=== PATIENT | female | born 1975 | race Caucasian/White ===

== ENCOUNTER 2019-07-18 21:38 | Emergency (ER) | payer MEDICAID, SELFPAY ==
[2019-07-18] VITALS (12 sets, daily range): BP systolic 123–132; BP diastolic 81–87; PULSE 63–82; RESP 19–34; TEMP 37.1; O2SAT 93–99
--- NOTE | 2019-07-18 21:45 | ED.GENADUL_ITS ---
Discharge Plan Disposition Patient Disposition: HOME Condition: Good Discharge Details Chief Complaint: Chest Pain Clinical Impression: Chest pain Primary Care Provider: Leatha Ellis ED Provider: Wai Campuzano Meds and New Rx's Prescriptions: Continued multivitamin [Daily Vitamin] 1 EACH tablet 1 ea PO DAILY RF: 0 polyethylene glycol 3350 [Miralax] 17 GM powder in packet 17 gm PO PRN RF: 0 citalopram 10 MG/5 ML solution 20 mg PO HS RF: 0 Colace 50 MG capsule 100 mg PO BID RF: 0 levalbuterol HCl [Xopenex] 1.25 MG/3 ML solution for nebulization 1.25 mg Inhalation Q6H PRN RF: 0 cetirizine 1 MG/1 ML solution 10 mg PO DAILY RF: 0 DEPO-PROVERA 150 MG/1 ML DISP.SYRIN 150 mg IM q 12 weeks RF: 0 mometasone [Nasonex] 17 GM spray,non-aerosol 2 spry NS DAILY RF: 0 levalbuterol tartrate [Xopenex HFA] 15 GM HFA aerosol inhaler 1 inh Inhalation Q4H PRN RF: 0 lorazepam 0.5 mg Tablet 0.5 mg PO DAILY PRNRF: 0 pantoprazole 40 mg Tablet,Delayed Release (Dr/Ec) 40 mg PO DAILY RF: 0 Flovent HFA 110 mcg/actuation Hfa Aerosol Inhaler 1 puff INHALATION Q12H RF: 0 nabumetone 500 mg Tablet 500 mg PO BID PRNRF: 0 Discontinued omeprazole 10 MG capsule,delayed release(DR/EC) 20 mg PO DAILY RF: 0 ibuprofen [Advil] 100 MG tablet,chewable 800 mg PO 2 q 6 hrs prn RF: 0 Discharge Instructions Instructions: Chest Pain (ED) Additional Instructions: Your work-up tonight including laboratory studies, EKG, imaging are all reassuring. You should follow-up with your primary care this week. Outpatient stress testing to rule out a cardiac problem is recommended, preferably within 7 2 hours. Return to ED if you develop new or worsening chest pain, shortness of breath, fever, other concerns or problems. Referrals: Leatha Ellis [Primary Care Provider] - Medical Decision Making <Jered Alejo MD - Last Filed: 07/18/19 23:42> Pleasant 44-year-old female smoker presents with the abrupt onset of left-sided chest discomfort while at work this evening. She was transported by EMS, given 325 mg of aspirin, and had taken 1000 mg of Tylenol. She arrives afebrile with a pulse of 72, blood pressure 123/81. Well-appearing and in no significant distress. She does have mild reproducible left chest wall pain. Differential diagnosis would include pneumothorax, pulmonary embolism, acute coronary syndrome, costochondritis. IV access established, patient given ketorolac, referred for laboratory testing, EKG, chest x-ray. EKG unremarkable. Chest x-ray with clear lungs, no evidence of pneumothorax and no consolidation or mass. D-dimer elevated and patient referred for CT scan of the chest that has no evidence of acute findings, specifically no PE. She will be observed for repeat troponin. Case to be signed out to Dr. Campuzano pending repeat troponin. Please see his note regarding final impression and disposition. ECG Data Attestation: I personally reviewed and interpreted this ECG (s) as follows: Interpretation: Normal sinus rhythm with a rate of 75, the QRS is narrow, unremarkable intervals, no ST segment elevation. <Wai Campuzano MD - Last Filed: 07/19/19 01:45> Patient had presented with chest pain. Initially evaluated by Dr. Alejo. Signed out to me pending second troponin and EKG. She has done well here with no complaints. Repeat EKG remains normal. Repeat troponin remains negative. HEART score makes her low risk and she will be discharged home to follow up with PCP. Return to ED for new/worse pain, shortness of breath, fever, other concerns. Lab Data Lab results reviewed: Yes I reviewed the patient's lab results. ECG Data Attestation: I personally reviewed and interpreted this ECG (s) as follows: Prior ECG tracings: available for review Interpretation: EKG sinus rhythm at a rate of 63. Normal axis and intervals. Normal ST segments. HPI <Jered Alejo MD - Last Filed: 07/18/19 23:42> General Mode of arrival: EMS . Date/Time Provider Initiated Documentation: 07/18/19 21:47 . Limitations to Documentation: no limitations . Information obtained by: patient and EMS . History of Present Illness 44 year old F presents to the emergency department with the chief complaint of Left- sided chest pain abruptly at work, described as moderate, Quality is described as dull and constant, and is localized to the chest and left. Patient started experiencing this hour(s) and it has been constant. No relieving factors improve symptom(s), No exacerbating factors reported . Patient notes no other symptoms.; denies syncope. Patient did receive the following treatments prior to arrival, other (Aspirin 325 mg, 1000 mg Tylenol) Related Data Home Medications Medication Instructions Recorded Confirmed Colace 100 mg PO BID tab-cap 08/10/13 07/18/19 Depo-Provera 150 mg IM q 12 weeks 08/10/13 07/18/19 cetirizine 10 mg PO DAILY ml 08/10/13 07/18/19 citalopram 20 mg PO HS ml 08/10/13 07/18/19 levalbuterol HCl [Xopenex] 1.25 mg INHALATION Q6H PRN 08/10/13 07/18/19 levalbuterol tartrate [Xopenex HFA] 1 inh INHALATION Q4H PRN inhaler 08/10/13 07/18/19 mometasone [Nasonex] 2 spry NS DAILY spray 08/10/13 07/18/19 multivitamin [Daily Vitamin] 1 ea PO DAILY 08/10/13 07/18/19 polyethylene glycol 3350 [Miralax] 17 gm PO PRN 08/10/13 07/18/19 Flovent HFA 1 puff INHALATION Q12H 07/18/19 07/18/19 lorazepam 0.5 mg PO DAILY PRN 07/18/19 07/18/19 nabumetone 500 mg PO BID PRN 07/18/19 07/18/19 pantoprazole 40 mg PO DAILY 07/18/19 07/18/19 Allergies Allergy/AdvReac Type Severity Reaction Status Date / Time oxycodone [Oxycodone] Allergy Intermediate VOMITS Unverified 08/18/13 15:16 Review of Systems <Jered Alejo MD - Last Filed: 07/18/19 23:42> Review of Systems Narrative: No leg pain or swelling. No recent illness. She has otherwise recently been well. Admits to increased stress in her life. Continues to smoke. 8 systems reviewed and otherwise negative PFSH <Jered Alejo MD - Last Filed: 07/18/19 23:42> Social History Smoking/Tobacco Use Status: Current every day Alcohol Intake: never Substance use type: does not use Do you feel safe at home: Yes Do you feel safe in your relationship?: Yes Exam <Jered Alejo MD - Last Filed: 07/18/19 23:42> Narrative Exam Narrative: GEN: awake, alert, oriented 3. Pleasant, well groomed, interactive. HEAD: Normocephalic, atraumatic ENT: Mucous membranes moist, oropharynx unremarkable, External ear exam unremarkable EYES: PERRL, EOMI NECK: Full ROM, no ARIELLA, no menigismus CHEST/RESP: Minimal left-sided chest wall tenderness to palpation, clear to auscultation bilateral, no wheeze/rhonchi/rales CARDIOVASCULAR: RRR, no murmur, rub yasmine. 2+ Rad pulse bilateral ABDOMEN: Soft, nontender, no mass. +Bowel sounds EXT: Full ROM, no edema, no rash Neuro: Grossly normal neurologic exam, conversant, interactive. Psych: Speech fluent, thoughts congruent, affect normal Sign Out <Jered Alejo MD - Last Filed: 07/18/19 23:42> Sign Out Data: Sign Out Comment: followup repeat troponin, re-evaluation Last updated by Jered Alejo MD at 07/18/19 23:44
--- NOTE | 2019-07-18 21:50 | DI.RAD_ITS ---
EXAM: XR CHEST 2V PA LATERAL CLINICAL HISTORY: CP, hx reactive airway dis. TECHNIQUE: 2D digital imaging was performed. COMPARISON: No exams were available for comparison FINDINGS: LUNGS: Clear. No pleural abnormality seen. HEART: Normal. MEDIASTINUM: Normal. OTHER FINDINGS:Normal. IMPRESSION: No acute pulmonary findings.
--- NOTE | 2019-07-18 22:13 | NUR.NOTE ---
Pt reports sudden onset constant, sharp left chest pain radiating down left arm since 2099. was at work at the time. Reports associated SOB. tried using inhaler with no relief. SR on monitor, LSCTA. Reports hx of anxiety, does not feel similar to anxiety attack in the past. #18 RAC, labs drawn.
[2019-07-18 22:18] LABS: Abs Immature Grans 0.01 k/cumm (0.0-0.09); Absolute Basophil Count 0.02 k/cumm (0.0-0.2); Absolute Eosinophil Count 0.07 k/cumm (0.0-0.7); Absolute Monocyte Count 0.46 k/cumm (0.11-0.7); Absolute Neutrophil Count 3.71 k/cumm (1.2-6.7); Basophils % 0.3; Eosinophils % 1.1; HCT 34.5 % (36.0-46.0); HGB 11.9 g/dL (12.0-15.5); Immature Grans % 0.2; Mean Corp. HGB Concentration 34.5 g/dL (32.0-36.0); Mean Corpuscular Hemoglobin 29.8 pg (27.0-33.0); Mean Corpuscular Volume 86.3 fL (80-95); Mean Platelet Volume 8.5 fL (8.0-11.0); Neutrophils % 56.4; Platelet Count 357 x1000/uL (130-400); RBC Distribution Width 12.8 % (11.7-14.6); White Blood Cell Count 6.57 k/cumm (4.4-10.8)
[2019-07-18] MEDS: Ketorolac 15 MG/ML VIAL IVP (22:24)
--- NOTE | 2019-07-18 22:28 | DI.VRAD_ITS ---
PROCEDURE INFORMATION: Exam: XR Chest, 2 Views Exam date and time: 07/18/2019 9:52 PM Clinical history: 44 years old, female; Left-sided chest pain; Patient HX: Left sided chest pain for 2 hours TECHNIQUE: Imaging protocol: XR of the chest Views: 2 views. COMPARISON: No relevant prior studies available. FINDINGS: Lungs: Clear lungs. Pleural space: No pneumothorax. No sizable pleural effusion. Heart/Mediastinum: No cardiomegaly. Bones/joints: Unremarkable. IMPRESSION: Clear lungs. Dictated and Authenticated by: Moe Barrera MD. Ordering:MARGO Lawton MD
[2019-07-18 22:29] LABS: ALT 14 U/L (14-59); AST 12 U/L (15-37); Albumin 3.6 g/dL (3.4-5.0); Alkaline Phosphatase 70 U/L (46-116); Anion Gap 12.4 mmol/L (3-11); BUN 9 mg/dL (7-18); Bilirubin, Total 0.2 mg/dL (0.2-1.0); CO2 22.6 mmol/L (21.0-32.0); Calcium 8.7 mg/dL (8.5-10.1); Chloride 107 mmol/L (98-107); Estimated GFR 53.47 (mL/min/1.73m2); Glucose 87 mg/dL (70-100); Potassium 3.4 mmol/L (3.5-5.1); Sodium 142 mmol/L (136-145); Total Protein 6.9 g/dL (6.4-8.2); Troponin I < 0.05 ng/mL (0.00-0.06)
[2019-07-18 22:50] LABS: D-Dimer 519 ng/mlFEU (<500)
--- NOTE | 2019-07-18 22:52 | DI.CT_ITS ---
EXAM: CT CHEST PE CTA CLINICAL HISTORY: L chest pain, elevated DDimer TECHNIQUE: Imaging Protocol: Axial computed tomography images with coronal and sagittal reformatted images were created and reviewed CONTRAST MATERIAL: Intravenous: Omnipaque 350 Contrast volume:structured data in ml Contrast route:I V - Oral: yes / COMPARISON: No exams were available for comparison FINDINGS: Tracheobronchial tree: Patent where visualized. Mediastinum and Nery: No dominant adenopathy or fluid collection. Pulmonary parenchyma: No consolidation or dominant measurable mass.. No pneumothorax. Pleura: No effusion or pneumothorax. Heart/Aorta: Thoracic aorta non-dilated. The heart is not dilated. No coronary artery calcifications are seen. Pulmonary artreries: No emboli. Normal caliber. Upper abdomen: Unremarkable. Bones: Unremarkable. IMPRESSION: Normal CT of the thorax. DATA REPOSITORY: All CT scans at this facility are submitted to the National Radiology Data Registry (NRDR) Dose Index Registry (DIR) with the [employer] (ACR). RADIATION OPTIMIZATION: All CT scans at this facility use at least one of these dose optimization te chniques: automated exposure control; mA and/or kV adjustment per patient size (includes targeted exa ms where dose is matched to clinical indication); or iterative reconstruction.
[2019-07-18] MEDS: Normal Saline 500 ML IV (22:59)
[2019-07-18] MEDS: Omnipaque 350 MG/ML 100 ML BTL IJ (23:11)
--- NOTE | 2019-07-18 23:41 | DI.VRAD_ITS ---
PROCEDURE INFORMATION: Exam: CT Angiography Chest With Contrast Exam date and time: 07/18/2019 11:05 PM Clinical history: 44 years old, female; Pain and abnormal findings; Abnormal diagnostic tests; Elevated d-dimer; Left-sided chest pain; Patient HX: L chest pain, elevated d dimer TECHNIQUE: Imaging protocol: Computed tomographic angiography of the chest with intravenous contrast. 3D rendering: MIP reconstructed images were created and reviewed. COMPARISON: CR XR CHEST 2V PA LATERAL 07/18/2019 10:13 PM FINDINGS: Pulmonary arteries: There is no evidence for PE. Aorta: Unremarkable. No aortic aneurysm. No aortic dissection. Lungs: Minimal dependent atelectasis Pulmonary granuloma noted. Pleural space: Unremarkable. No pneumothorax. No pleural effusion. Heart: Unremarkable. No cardiomegaly. No pericardial effusion. Lymph nodes: Unremarkable. No enlarged lymph nodes. Bones/joints: Unremarkable. No acute fracture. Soft tissues: Unremarkable. IMPRESSION: No acute findings Dictated and Authenticated by: Brannon Burden MD. Ordering:MARGO Lawton MD
[2019-07-19 00:27] VITALS: BP 142/89; PULSE 73
[2019-07-19 01:07] LABS: Troponin I < 0.05 ng/mL (0.00-0.06)
[2019-07-19 01:46] VITALS: BP 124/84; PULSE 73; RESP 16; TEMP 37.5; O2SAT 99
--- NOTE | 2019-07-19 01:47 | NUR.NOTE ---
IV removed. Discharge instructions reviewed with verbal understanding. aware to f/u with pcp as needed. ambulated to exit with steady gait.
== END 2019-07-19 01:52 | disposition home or self-care (01) ==
PROVIDERS: Emergency Medicine; Emergency Provider Emergency Medicine; PCP Registered Nurse
DX: R07.9 Chest pain, unspecified (principal)
CPT/HCPCS: 36416; 71275; 80053; 93005; 96361; 96374; 99285; 71046; 84484; 85025; 85379; 93010; 99284; J1885; J3490

== ENCOUNTER 2021-04-21 19:20 | Emergency (ER) | payer MEDICAID, SELFPAY ==
[2021-04-21] VITALS (27 sets, daily range): BP systolic 113–157; BP diastolic 65–97; PULSE 69–83; RESP 7–37; TEMP 36.6; O2SAT 97–100
--- NOTE | 2021-04-21 20:15 | RT.EKG_ITS ---
APPROVED REPORT Exam: Resting ECG Reason for Exam: chest pain Patient Location: E HR:69 bpm ECG Measurements Heart Rate 69 AXIS NJ 156 P 61 QRSd 71 QRS 41 QT 444 T 36 QTc 474 Conclusion Sinus rhythm...normal P axis, V-rate 60- 99 Normal Electrocardiogram
--- NOTE | 2021-04-21 20:15 | DI.RAD_ITS ---
Exam(s) XR CHEST 2V PA LATERAL EXAM: XR CHEST 2V PA LATERAL CLINICAL HISTORY: chest pain. TECHNIQUE: 2D digital imaging was performed. COMPARISON: CR XR CHEST 2V PA LATERAL from 07/18/2019 FINDINGS: Heart size is normal. The mediastinum is not widened. Lungs are clear. No infiltrates nor pleural effusions. Chest leads in place IMPRESSION: No acute pulmonary findings. DATA REPOSITORY: RADIATION DOSE DELIVERED:
[2021-04-21 20:43] LABS: Abs Immature Grans 0.03 10^3/uL (0.0-0.06); Absolute Basophil Count 0.02 10^3/uL (0.0-0.2); Absolute Eosinophil Count 0.05 10^3/uL (0.0-0.7); Absolute Lymphocyte Count 2.01 10^3/uL (1.2-3.4); Absolute Monocyte Count 0.37 10^3/uL (0.1-0.8); Absolute Neutrophil Count 4.02 10^3/uL (1.2-6.7); Basophils % 0.3; Eosinophils % 0.8; HCT 36.5 % (36.0-46.0); HGB 12.3 g/dL (11.2-15.7); Immature Grans % 0.5; Lymphocytes % 30.9; MCH 29.1 pg (27.0-33.0); MCHC 33.7 % (32.0-36.0); MCV 86.5 fL (80-95); MPV 8.5 fL (8.0-11.0); Monocytes % 5.7; Neutrophils % 61.8; Nucleated RBC 0 %; Platelet Count 304 10^3/uL (130-400); RBC 4.22 10^6/uL (3.93-5.22); RDW 12.6 % (11.7-14.6); RDW-SD 39.6 fL
[2021-04-21] MEDS: LORazepam 1 MG TAB PO (20:45)
[2021-04-21] MEDS: Normal Saline 1,000 ML 1000 ML IV (20:46)
[2021-04-21 21:00] LABS: ALT 15 U/L (14-59); AST 11 U/L (15-37); Albumin 3.5 g/dL (3.4-5.0); Alkaline Phosphatase 66 U/L (46-116); Anion Gap 10.8 mmol/L (3-11); BUN 11 mg/dL (7-18); Bilirubin, Total 0.1 mg/dL (0.2-1.0); CO2 25.2 mmol/L (21.0-32.0); Calcium 9.1 mg/dL (8.5-10.1); Chloride 106 mmol/L (98-107); Estimated GFR 59.43 (mL/min/1.73m2); Glucose 87 mg/dL (74-106); Magnesium 2.2 mg/dL (1.8-2.4); Potassium 3.4 mmol/L (3.5-5.1); Sodium 142 mmol/L (136-145); Total Protein 6.9 g/dL (6.4-8.2)
[2021-04-21 21:02] LABS: Troponin I < 0.05 ng/mL (<0.06)
--- NOTE | 2021-04-21 22:10 | DI.VRAD_ITS ---
PROCEDURE INFORMATION: Exam: XR Chest Exam date and time: 04/21/2021 8:20 PM Age: 45 years old Clinical indication: Other: Chest pain and dizziness TECHNIQUE: Imaging protocol: XR of the chest. Views: 2 views. COMPARISON: CR XR CHEST 2V PA LATERAL 07/18/2019 10:13 PM FINDINGS: Tubes, catheters and devices: Monitoring wires are noted. Lungs: Unremarkable. No consolidation. Pleural spaces: Unremarkable. No pleural effusion. No pneumothorax. Heart/Mediastinum: Unremarkable. No cardiomegaly. Bones/joints: Unremarkable. IMPRESSION: No acute cardiopulmonary abnormality. Dictated and Authenticated by: Pineda Moreno MD. Ordering:YOVANA Wilcox MD
[2021-04-21 22:45] LABS: Troponin I < 0.05 ng/mL (<0.06)
--- NOTE | 2021-04-21 23:01 | ED.GENADUL_ITS ---
Discharge Plan Disposition Patient Disposition: HOME Condition: Good Discharge Details Clinical Impression: Pre-syncope, Chest pain Primary Care Provider: Leatha Ellis ED Provider: Jeri Alvarez Home Meds and New Rx's Prescriptions: Continued multivitamin [Daily Vitamin] 1 EACH tablet 1 ea PO DAILY RF: 0 polyethylene glycol 3350 [Miralax] 17 GM powder in packet 17 gm PO PRN RF: 0 Colace 50 MG capsule 100 mg PO BID RF: 0 levalbuterol HCl [Xopenex] 1.25 MG/3 ML solution for nebulization 1.25 mg Inhalation Q6H PRN RF: 0 DEPO-PROVERA 150 MG/1 ML DISP.SYRIN 150 mg IM q 12 weeks RF: 0 mometasone [Nasonex] 17 GM spray,non-aerosol 2 spry NS DAILY RF: 0 levalbuterol tartrate [Xopenex HFA] 15 GM HFA aerosol inhaler 1 inh Inhalation Q4H PRN RF: 0 pantoprazole 40 mg Tablet,Delayed Release (Dr/Ec) 40 mg PO DAILY RF: 0 Flovent HFA 110 mcg/actuation Hfa Aerosol Inhaler 1 puff INHALATION Q12H RF: 0 citalopram 20 mg tablet 30 mg PO DAILY RF: 0 cetirizine 10 mg tablet 10 mg PO DAILY AM RF: 0 Discharge Instructions Instructions: Chest Pain (ED), Near Syncope (ED) Additional Instructions: Please follow-up with your primary care physician in 1 to 2 days for reevaluation Recommend smoking cessation Drink 8 to 10 glasses of water daily Return earlier should you have new or worsening complaints Discharge Data Discharge Date/Time-TO BE ENTERED AT DEPARTURE: 04/21/21 23:10 Medical Decision Making Patient is alert and oriented with a nonfocal neurological exam She is not hypoxic, oxygenation 99% on room air,, no exogenous estrogen, no recent flights, surgeries, long drives, no history of coagulopathy, no tachycardia, very low suspicion based on my clinical exam findings for pulmonary embolism suspicion for pulmonary embolism, respiratory rate initially elevated, 13 discharged from Feeling feeling symptomatically improved after dose of p.o. Ativan Patient will supplement potassium 3.4 at home Chest x-ray per virtual radiology does not show obvious abnormality 2 - troponins, EKG x2 within normal limits patient Chest pain-free at time of reevaluation PCP follow-up recommended Heart score of 2, relatively low risk for discharge based on these findings although outpatient stress test recommended given tobacco abuse history and age Nonfocal neurological exam Ambulatory with steady gait Will call PCP tomorrow Medical Records Medical records reviewed: Yes I reviewed the patient's medical records. Lab Data Lab results reviewed: Yes I reviewed the patient's lab results. ECG Data Attestation: I personally reviewed and interpreted this ECG (s) as follows: HPI General Mode of arrival: ambulatory . Date/Time Provider Initiated Documentation: 04/21/21 19:42 . Limitations to Documentation: no limitations . Information obtained by: patient . HPI Narrative: This 45-year-old female with history of anxiety and depression states she was working at [employer] at approximately 7:00 this evening and it was getting dizzy . She states that she started to feel lightheaded and developed some tunnel vision. She states she felt like she was going to pass out and then subsequently developed some chest pain. She states that she presents emergency room for evaluation. She denies chest pain lately. She states that the dizziness has resolved. She denies any headache. Denies any chance of . Denies any calf pain or swelling. Stacy quite well prior to the event. States she has a history of chest pain, sometimes it coincides with her anxiety she reports. She states she has been evaluated on numerous occasions at [facility] for chest pain and they never find anything wrong. She smokes tobacco. She denies any illicit drug use. She denies any history of DVT or pulmonary embolism. Related Data Home Medications Medication Instructions Recorded Confirmed Colace 100 mg PO BID tab-cap 08/10/13 07/18/19 Depo-Provera 150 mg IM q 12 weeks 08/10/13 04/21/21 levalbuterol HCl [Xopenex] 1.25 mg INHALATION Q6H PRN 08/10/13 04/21/21 levalbuterol tartrate [Xopenex HFA] 1 inh INHALATION Q4H PRN inhaler 08/10/13 04/21/21 mometasone [Nasonex] 2 spry NS DAILY spray 08/10/13 04/21/21 multivitamin [Daily Vitamin] 1 ea PO DAILY 08/10/13 04/21/21 polyethylene glycol 3350 [Miralax] 17 gm PO PRN 08/10/13 04/21/21 Flovent HFA 1 puff INHALATION Q12H 07/18/19 07/18/19 pantoprazole 40 mg PO DAILY 07/18/19 04/21/21 cetirizine 10 mg PO DAILY AM 04/21/21 04/21/21 citalopram 30 mg PO DAILY 04/21/21 04/21/21 Allergies Allergy/AdvReac Type Severity Reaction Status Date / Time oxycodone [Oxycodone] Allergy Intermediate VOMITS Unverified 04/21/21 19:36 General Stated Complaint: Dizzy/Sync GRACE: 3 Review of Systems All systems reviewed & are unremarkable except as noted in HPI and below PFSH Social History Smoking/Tobacco Use Status: Current every day Smoking risk assessment performed?: Yes Alcohol Intake: never Substance use type: does not use Do you feel safe at home: Yes Do you feel safe in your relationship?: Yes Exam Const General: cooperative and no acute distress HENMT Other: Uvula midline, moist mucous Eyes Pupils: PERRL Neck Neck: normal visual inspection Resp Effort & Inspection: normal respiratory effort Auscultation: clear to auscultation bilaterally Cardio Rate: regular rate Rhythm: regular rhythm GI Inspection: normal to inspection Skin General skin exam: no rashes or lesions noted Neuro General: patient alert and patient oriented x3 Cranial Nerves: CN's II-XI intact bilaterally Speech: speech normal Gait: normal gait Motor: strength 5/5 throughout and no pronator drift Sensory Exam: no sensory deficits noted Extrem General: normal to inspection Other: No peripheral edema, distal pulses intact Psych Other: Appears anxious Course Vital Signs Vital signs: Vital Signs Temperature 36.6 C 04/21/21 19:30 Pulse 77 04/21/21 19:30 Respiratory Rate 24 04/21/21 19:30 Blood Pressure 113/97 H 04/21/21 19:30 Pulse Oximetry 99 04/21/21 19:30 Temperature 36.6 C 04/21/21 19:30 Temperature Source Temporal Artery Scan 04/21/21 19:30 Pulse 76 04/21/21 20:31 Pulse 71 04/21/21 20:40 Respiratory Rate 11 L 04/21/21 20:40 Respiratory Effort 04/21/21 20:47 Respiratory Pattern Normal 04/21/21 20:47 Blood Pressure 124/81 04/21/21 20:31 Blood Pressure Mean 91 04/21/21 20:31 Blood Pressure Position Supine 04/21/21 19:30 Pulse Oximetry 98 04/21/21 20:40 Oxygen Delivery Method Room Air 04/21/21 19:30 Oxygen Flow Rate 0 04/21/21 19:30 Pain Level 0 04/21/21 19:30 Lab/Test Results Lab/Test Results: Laboratory Tests Range/Units 04/21/21 04/21/21 04/21/21 20:35 20:35 22:17 WBC (4.4-10.8) 10^3/uL 6.50 RBC (3.93-5.22) 10^6/uL 4.22 Hgb (11.2-15.7) g/dL 12.3 Hct (36.0-46.0) % 36.5 MCV (80-95) fL 86.5 MCH (27.0-33.0) pg 29.1 MCHC (32.0-36.0) % 33.7 RDW (11.7-14.6) % 12.6 Plt Count (130-400) 10^3/uL 304 MPV (8.0-11.0) fL 8.5 Immature Gran % 0.5 Neutrophils % 61.8 Lymphocytes % 30.9 Monocytes % 5.7 Eosinophils % 0.8 Basophils % 0.3 Nucleated RBC % % 0 Absolute Neutrophils (1.2-6.7) 10^3/uL 4.02 Absolute Lymphocytes (1.2-3.4) 10^3/uL 2.01 Absolute Monocytes (0.1-0.8) 10^3/uL 0.37 Absolute Eosinophils (0.0-0.7) 10^3/uL 0.05 Absolute Basophils (0.0-0.2) 10^3/uL 0.02 Sodium (136-145) mmol/L 142 Potassium (3.5-5.1) mmol/L 3.4 L Chloride (98-107) mmol/L 106 Carbon Dioxide (21.0-32.0) mmol/L 25.2 Anion Gap (3-11) mmol/L 10.8 BUN (7-18) mg/dL 11 Creatinine (0.55-1.02) mg/dL 1.0 Estimated GFR/1.73 m2 (mL/min/1.73m2) 59.43 Glucose (74-106) mg/dL 87 Calcium (8.5-10.1) mg/dL 9.1 Magnesium (1.8-2.4) mg/dL 2.2 Total Bilirubin (0.2-1.0) mg/dL 0.1 L AST (15-37) U/L 11 L ALT (14-59) U/L 15 Alkaline Phosphatase (46-116) U/L 66 Troponin I (<0.06) ng/mL < 0.05 < 0.05 Total Protein (6.4-8.2) g/dL 6.9 Albumin (3.4-5.0) g/dL 3.5
== END 2021-04-21 23:10 | disposition home or self-care (01) ==
PROVIDERS: Emergency Provider Physician Assistant; PCP Registered Nurse
DX: R55 Syncope and collapse (principal); R07.89 Other chest pain
CPT/HCPCS: 80053; 93005; 96360; 99285; 71046; 83735; 84484; 85025; 93010; 99284

== ENCOUNTER 2022-05-26 13:56 | Emergency (ER) | payer MEDICAID, SELFPAY ==
[2022-05-26 14:05] VITALS: BP 106/70; PULSE 93; RESP 18; TEMP 36.8; O2SAT 98
--- NOTE | 2022-05-26 15:16 | ED.GENADUL_ITS ---
Discharge Plan Disposition Patient Disposition: HOME Condition: Stable Discharge Details Clinical Impression: Folliculitis Primary Care Provider: Unknown,Unknown ED Provider: Rinku Schulte Home Meds and New Rx's Prescriptions: No Action buspirone 5 mg Tablet 5 mg PO 3XD PRN citalopram 20 mg Tablet 20 mg PO DAILY pantoprazole 40 mg Tablet,Delayed Release (Dr/Ec) 40 mg PO DAILY amlodipine 5 mg Tablet 5 mg PO DAILY cetirizine 10 mg Tablet 10 mg PO DAILY hydroxyzine HCl 50 mg Tablet 50 mg PO QHS Discharge Instructions Instructions: Folliculitis (ED) Additional Instructions: It is recommended to clean the area of her rash with antibacterial soap and water. We should continue to monitor this and if not improving in the next 2 weeks please return to the emergency department or follow-up with your primary care provider for reassessment. Referrals: Primary Care Provider [Outside] (As needed for reassessment or if not improving) Discharge Data Discharge Date/Time-TO BE ENTERED AT DEPARTURE: 05/26/22 18:20 Medical Decision Making <NGA Clemens - Last Filed: 06/13/22 23:36> Patient is a pleasant 46-year-old female presented with chief complaint of rash, shortness of breath, chest discomfort. She reports the rash has been gett ing worse after losing her car and very high environment of the past several days. Rash primarily affecting the anterior aspect of her neck, down to her chest going to treat her breast and upper back. She describes slightly itchy. She states that while she does not develop any Associated rash historically, she does develop heat rash in the summer and specific areas. Typically not in this area. She also describes complex social situation and that this can cause some shortness of breath and chest discomfort. We will initially keep that she was describing more of anxiety symptoms, she also reports that this is becoming worse with a ambulation, particularly long distance walking. She reports that she does not like living in the hotel she is currently living out, possibly revising her car. She denies any fevers or chills. States that when she does have some chest discomfort she can also have concomitant shortness of breath. Patient smokes half pack a day. Had initially been concerned about her bowel habits with nursing staff but to me states that they seem to wax and wane between softer and harder stools with a max of 2/day. Denies any blood in her stool. On exam, patient appears nontoxic. Slightly tachycardic at 93, but comfortable stable. Lungs are clear, normal cardiac exam. Abdomen benign. She has scattered what appear to be simple in the creases of her neck as well as her anterior chest. Patient was concerned from monkey proximal but did not see any lesions associated with this nor did she have these typical systemic symptoms associated with this. This is likely associated with moving her car, and the heat and sweating. She has had exertional chest discomfort or shortness of breath, I do feel that evaluation for ACS would be appropriate. If initial troponin is within normal limits, I do not feel that repeat would be warranted as symptoms have been going on for the past week or more. Care transition to Rinku Schulte NP with labs pending. <Rinku Schulte NP - Last Filed: 05/29/22 08:07> Patient is a pleasant 46-year-old female presented with chief complaint of rash, shortness of breath, chest discomfort. She reports the rash has been getting worse after losing her car and very high environment of the past several days. Rash primarily affecting the anterior aspect of her neck, down to her chest going to treat her breast and upper back. She describes slightly itchy. She states that while she does not develop any Associated rash historically, she does develop heat rash in the summer and specific areas. Typically not in this area. She also describes complex social situation and that this can cause some shortness of breath and chest discomfort. We will initially keep that she was describing more of anxiety symptoms, she also reports that this is becoming worse with a ambulation, particularly long distance walking. She reports that she does not like living in the hotel she is currently living out, possibly revising her car. She denies any fevers or chills. States that when she does have some chest discomfort she can also have concomitant shortness of breath. Patient smokes half pack a day. Had initially been concerned about her bowel habits with nursing staff but to me states that they seem to wax and wane between softer and harder stools with a max of 2/day. Denies any blood in her stool. On exam, patient appears nontoxic. Slightly tachycardic at 93, but comfortable stable. Lungs are clear, normal cardiac exam. Abdomen benign. She has scattered what appear to be simple in the creases of her neck as well as her anterior chest. Patient was concerned from monkey proximal but did not see any lesions associated with this nor did she have these typical systemic symptoms associated with this. This is likely associated with moving her car, and the heat and sweating. She has had exertional chest discomfort or shortness of breath, I do feel that evaluation for ACS would be appropriate. If initial troponin is within normal limits, I do not feel that repeat would be warranted as symptoms have been going on for the past week or more. Care transition to Rinku Schulte NP with labs pending. Care received from Ann-Marie SYLVESTER. Please see her initial note, HPI, and physical exam. Reviewed patient's labs and unremarkable CBC, potassium slightly low at 3.1 so we will give oral repletion, urine shows negative for nitrates negative for leukocyte Estrace but reflective culture was ordered via lab protocol for moderate bacteria noted in urine. Along with 5-10 WBCs. We will patient's symptoms do not seem obvious for urinary tract infection we will hold off on antibiotics pending culture results. I feel that patient's symptoms are s econdary to anxiety given negative troponin. Patient requested discharge and we discussed standard care of mild folliculitis to her chest that I feel is secondary to heat exposure and social situation given that she is living in her car. Discussed care of skin issues along with return and follow-up precautions. After discussion of diagnosis and plan of care patient has no further needs, questions, or concerns and states clear understanding to return to the emergency department for any worsening symptoms. This documentation was generated using [employer] dictation system, please disregard any oddities of phrase or misspellings. Lab Data Lab results reviewed: Yes I reviewed the patient's lab results. HPI <NGA Clemens - Last Filed: 06/13/22 23:36> General Date/Time Provider Initiated Documentation: 05/26/22 14:14 . Limitations to Documentation: no limitations . Information obtained by: patient and RN notes reviewed . History of Present Illness 46 year old F presents to the emergency department with the chief complaint of several complaints such as SOB, rash, chest discomfort, described as mild, Quality is described as aching, and is localized to the chest. Patient reports no radiation. Patient started experiencing this day(s) and it has been intermittent. No relieving factors improve symptom(s), Other factors that worsen symptoms (anxiety increases her SOB and CP, she states it comes on when laying down) . Patient notes chest pain, malaise, rash and shortness of breath; denies cough, fever/chills and nausea/vomiting. Patient did receive the following treatments prior to arrival, none Related Data Home Medications Medication Instructions Recorded Confirmed amlodipine 5 mg tablet 5 mg PO DAILY 05/26/22 05/26/22 buspirone 5 mg tablet 5 mg PO 3XD PRN 05/26/22 05/26/22 cetirizine 10 mg tablet 10 mg PO DAILY 05/26/22 05/26/22 citalopram 20 mg tablet 20 mg PO DAILY 05/26/22 05/26/22 hydroxyzine HCl 50 mg tablet 50 mg PO QHS 05/26/22 05/26/22 pantoprazole 40 mg tablet,delayed 40 mg PO DAILY 05/26/22 05/26/22 release Allergies Allergy/AdvReac Type Severity Reaction Status Date / Time oxycodone AdvReac Unverified 05/26/22 16:05 General Stated Complaint: Nausea/Vomit/Diar GRACE: 3 Review of Systems <NGA Clemens - Last Filed: 06/13/22 23:36> Constitutional Constitutional: Reports as per HPI, Denies chills, Denies fever(s) and Denies poor appetite Eyes Eyes: Denies change in vision ENT Ears, Nose, Mouth, and Throat: Denies dizziness Cardiovascular Cardiovascular: Reports as per HPI and Denies dyspnea on exertion Respiratory Respiratory: Reports as per HPI, Denies chest congestion, Denies cough, Denies pain on inspiration, Denies pain with cough and Denies dyspnea on exertion Gastrointestinal Gastrointestinal: Reports as per HPI, Denies abdominal pain, Denies diarrhea, Denies nausea and Denies vomiting Musculoskeletal Musculoskeletal: Reports as per HPI and Denies back pain Integumentary/Breasts Skin/Breast: Reports as per HPI Neurologic Neurologic: Reports as per HPI and Denies dizziness [facility] <NGA Clemens - Last Filed: 06/13/22 23:36> All Active Problems (Updated 05/26/22 @ 18:10 by Rinku Schulte NP) Folliculitis (Acute) Social History Smoking/Tobacco Use Status: Current every day Tobacco Type: cigarettes Tobacco: How many years used: 35 Smoking risk assessment performed?: Yes Alcohol Intake: never Substance use type: does not use Do you feel safe at home: Yes Do you feel safe in your relationship?: Yes Exam <NGA Clemens - Last Filed: 06/13/22 23:36> Const General: cooperative, healthy appearing, comfortable, no acute distress, well developed and anxious Nutritional Appearance: average body habitus and well nourished Orientation: alert, awake and oriented x3 HENMT Head: normal to inspection Ears: hearing grossly normal bilaterally Mouth: moist mucous membranes Chest Chest: normal palpation of entire chest wall, no crepitus and rash (upper chest and increases of the neck there are small pustules ) Resp Effort & Inspection: normal respiratory effort, able to speak in complete sentences and no respiratory distress Auscultation: clear to auscultation bilaterally, no rales, no rhonchi and no wheezes Cardio Rate: regular rate Rhythm: regular rhythm Heart Sounds: S1 normal and S2 normal GI Inspection: normal to inspection, no edema and non-distended Palpation: soft, no hepatosplenomegaly, not firm, no guarding, not rigid and nontender Auscultation: normal bowel sounds Back/Spine/Pelvis Back: no CVA tenderness Thoracic/Lumbar Spine: thoracic and lumbar spine normal to inspection Skin General skin exam: no rashes or lesions noted Trauma: no lacerations or abrasions Neuro General: patient alert, patient awake and patient oriented x3 Cognition: normal cognition Speech: speech normal Gait: normal gait Extrem General: normal to inspection, capillary refill normal, no pedal edema, no calf tenderness and normal gait Psych Appearance: grossly normal and well kempt Mental Status: mental status grossly normal Speech and Movement: speech and movement normal Course <NGA Clemens - Last Filed: 06/13/22 23:36> Vital Signs Vital signs: Vital Signs Temperature 36.8 C 05/26/22 14:05 Pulse 93 H 05/26/22 14:05 Respiratory Rate 18 05/26/22 14:05 Blood Pressure 106/70 05/26/22 14:05 Pulse Oximetry 98 05/26/22 14:05 Temperature 36.8 C 05/26/22 14:05 Temperature Source Temporal Artery Scan 05/26/22 14:05 Pulse 93 H 05/26/22 14:05 Respiratory Rate 18 05/26/22 14:05 Blood Pressure 106/70 05/26/22 14:05 Blood Pressure Position Sitting 05/26/22 14:05 Pulse Oximetry 98 05/26/22 14:05 Oxygen Delivery Method Room Air 05/26/22 14:05 Oxygen Flow Rate 0 05/26/22 14:05 Sign Out <NGA Clemens - Last Filed: 06/13/22 23:36> Sign Out Data: Sign Out Comment: Care transition to Rinku Schulte NP. Here with rash, chest discomfort and shortness of breath. Chest x-ray, labs pending. Last updated by Ann-Marie Ruelas PA at 05/26/22 16:38
[2022-05-26] MEDS: Normal Saline 500 ML IV (16:04)
[2022-05-26 16:09] LABS: Abs Immature Grans 0.04 10^3/uL (0.0-0.06); Absolute Basophil Count 0.04 10^3/uL (0.0-0.2); Absolute Eosinophil Count 0.11 10^3/uL (0.0-0.7); Absolute Lymphocyte Count 2.43 10^3/uL (1.2-3.4); Absolute Monocyte Count 0.57 10^3/uL (0.1-0.8); Basophils % 0.4; Eosinophils % 1.2; HCT 37.4 % (36.0-46.0); HGB 13.3 g/dL (11.2-15.7); Immature Grans % 0.4; Lymphocytes % 26.2; MCH 29.9 pg (27.0-33.0); MCHC 35.6 % (32.0-36.0); MCV 84 fL (80-95); MPV 8.5 fL (8.0-11.0); Monocytes % 6.1; Neutrophils % 65.7; Platelet Count 395 10^3/uL (130-400); RBC 4.45 10^6/uL (3.93-5.22); RDW 12.9 % (11.7-14.6); RDW-SD 39.6 fL; WBC 9.29 10^3/uL (4.4-10.8)
--- NOTE | 2022-05-26 16:30 | DI.RAD_ITS ---
Exam(s) XR CHEST 2V PA LATERAL EXAM: XR CHEST 2V PA LATERAL CLINICAL HISTORY: SOB/CP. TECHNIQUE: 2D digital imaging was performed. COMPARISON: No exams were available for comparison FINDINGS: 2 views: Heart size is normal. The mediastinum is not widened. Lungs are clear. No infiltrates nor pleural effusions. IMPRESSION: No acute pulmonary findings. DATA REPOSITORY: RADIATION DOSE DELIVERED:
[2022-05-26 16:59] LABS: ALT 23 U/L (14-59); AST 16 U/L (15-37); Albumin 3.6 g/dL (3.4-5.0); Alkaline Phosphatase 77 U/L (46-116); Anion Gap 9.7 mmol/L (3-11); BUN 11 mg/dL (7-18); Bilirubin, Total 0.2 mg/dL (0.2-1.0); CO2 26.3 mmol/L (21.0-32.0); CREATININE 0.9 mg/dL (0.55-1.02); Calcium 8.9 mg/dL (8.5-10.1); Chloride 105 mmol/L (98-107); Glucose 105 mg/dL (74-106); Magnesium 2.2 mg/dL (1.8-2.4); Potassium 3.1 mmol/L (3.5-5.1); Sodium 141 mmol/L (136-145); Total Protein 7.5 g/dL (6.4-8.2)
[2022-05-26 17:07] LABS: Bilirubin Negative (Negative); Blood Negative (Negative); Clarity Clear (Clear); Glucose Negative (Negative); Ketones Negative (Negative); Leukocyte Esterase Negative (Negative); Nitrite Negative (Negative); Specific Gravity 1.025 (1.005-1.025); Urobilinogen 0.2 EU/dL (Up TO 0.2)
[2022-05-26 17:09] LABS: Troponin I < 50 ng/L (<or=60)
[2022-05-26 17:15] LABS: Bacteria Moderate HPF (Negative); Epithelial Cells Few HPF (Negative); RBC Negative HPF (0-2)
[2022-05-26 17:16] LABS: C & S Indicated? Yes; Casts Negative LPF (Negative); Crystals Negative HPF (Negative); Mucus Trace (Negative)
--- NOTE | 2022-05-26 17:24 | DI.VRAD_ITS ---
PROCEDURE INFORMATION: Exam: XR Chest Exam date and time: 05/26/2022 4:58 PM Age: 46 years old Clinical indication: Other: Sob/cp TECHNIQUE: Imaging protocol: Radiologic exam of the chest. Views: 2 views. COMPARISON: No relevant prior studies available. FINDINGS: Lungs: Unremarkable. No consolidation. Pleural spaces: Unremarkable. No pleural effusion. No pneumothorax. Heart/Mediastinum: Unremarkable. No cardiomegaly. Bones/joints: Unremarkable. IMPRESSION: No acute findings. Dictated and Authenticated by: Ayden Liang MD. Ordering:MAURILIO Jacobsen MD
[2022-05-26] MEDS: Potassium Chloride 20 MEQ TABCR 40 MEQ PO (18:17)
[2022-05-26 18:21] VITALS: BP 106/70; PULSE 93; RESP 18; TEMP 36.8; O2SAT 98
== END 2022-05-26 18:20 | disposition home or self-care (01) ==
PROVIDERS: Physician Assistant; Emergency Provider Nurse Practitioner Family
DX: L73.9 Follicular disorder, unspecified (principal); R07.89 Other chest pain; R06.02 Shortness of breath; R00.0 Tachycardia, unspecified; E87.6 Hypokalemia; F17.210 Nicotine dependence, cigarettes, uncomplicated
CPT/HCPCS: 80053; 81025; 99283; 71046; 81003; 81015; 83735; 84484; 85025; 87086; 99284

== ENCOUNTER 2022-08-01 10:44 | Emergency (ER) | payer MEDICAID, SELFPAY ==
[2022-08-01 10:54] VITALS: BP 111/66; PULSE 97; RESP 20; TEMP 37.2; O2SAT 100
[2022-08-01] MEDS: Ondansetron O.D.T. 4 MG TABEF PO (13:52)
--- NOTE | 2022-08-01 14:23 | ED.GENADUL_ITS ---
Discharge Plan Disposition Patient Disposition: HOME Condition: Stable Discharge Details Clinical Impression: COVID Primary Care Provider: [facility] Provider: Tramaine Kiser Home Meds and New Rx's Prescriptions: New ondansetron 4 mg tablet,disintegrating 4 mg PO Q8H PRN3 Days Qty: 10 0RF Continued buspirone 5 mg Tablet 5 mg PO 3XD PRN citalopram 20 mg Tablet 20 mg PO DAILY pantoprazole 40 mg Tablet,Delayed Release (Dr/Ec) 40 mg PO DAILY amlodipine 5 mg Tablet 5 mg PO DAILY cetirizine 10 mg Tablet 10 mg PO DAILY hydroxyzine HCl 50 mg Tablet 50 mg PO QHS celecoxib [Celebrex] 100 mg Capsule 100 mg PO BID Discharge Instructions Instructions: COVID-19 (Coronavirus Disease 2019) (ED) Additional Instructions: Paxlovid as directed. Zofran as directed. Plenty of fluids to avoid dehydration. Please quit smoking. [id number] medications as directed for symptomatic control. Please watch for new or worsening symptoms and return to the ER for any concerns. Lastly, please contact your primary care provider to discuss your ER visit need for outpatient reevaluation Stand Alone Forms: Work Release Discharge Data Discharge Date/Time-TO BE ENTERED AT DEPARTURE: 08/01/22 14:56 Medical Decision Making 47-year-old female, smoker, presenting to the ER for few day history of upper respiratory tract infection-like symptoms, tested positive for COVID today. She is vaccinated. Patient is requesting repeat COVID test and Covid treatment if positive. Given she already tested positive today, is symptomatic, had a positive COVID exposure, I feel as though her home test is likely sufficient however she would like to be retested. Clinically she appears well, nontoxic, is afebrile, O2 sat 100% on room air. I see no clear indication to obtain blood work, chest x-ray, etc. No evidence of vomiting. No clear signs of dehydration. No indication to initiate IV fluids. Will obtain a rapid flu and COVID, provide p.o. Zofran, and reassess. Flu negative, COVID positive. Patient tolerating p.o. intake without difficulty. I spoke with pharmacy regarding her medication list and Paxlovid. No concerning significant interactions, no need to make any medication changes. First dose of Paxlovid given now. Standard discharge and return precautions were provided. Patient understands, is agreeable to this plan, and has no additional questions or concerns upon discharge. This documentation was generated using bazing[employer]! Technologiesation system, please disregard any oddities of phrase or misspellings. Medical Records Medical records reviewed: Yes I reviewed the patient's medical records. Lab Data Lab results reviewed: Yes I reviewed the patient's lab results. HPI General Mode of arrival: ambulatory . Date/Time Provider Initiated Documentation: 08/01/22 11:02 . Limitations to Documentation: no limitations . Information obtained by: patient . HPI Narrative: This is a 47-year-old female with past medical history of GERD, anxiety, depression, hypertension, current smoker, presenting to the ER with upper respiratory tract infection like symptoms having had a positive COVID exposure last week and testing positive today. She reports subjective fever, headache, cough, body aches, fatigue. Denies difficulty breathing, shortness of breath and abdominal pain, diarrhea. Reports occasional nausea and vomiting, concern about dehydration. She would also like to initiate therapy for COVID. Related Data Home Medications Medication Instructions Recorded Confirmed amlodipine 5 mg tablet 5 mg PO DAILY 05/26/22 08/01/22 buspirone 5 mg tablet 5 mg PO 3XD PRN 05/26/22 08/01/22 cetirizine 10 mg tablet 10 mg PO DAILY 05/26/22 08/01/22 citalopram 20 mg tablet 20 mg PO DAILY 05/26/22 08/01/22 hydroxyzine HCl 50 mg tablet 50 mg PO QHS 05/26/22 08/01/22 pantoprazole 40 mg tablet,delayed 40 mg PO DAILY 05/26/22 08/01/22 release celecoxib 100 mg capsule (Celebrex) 100 mg PO BID 08/01/22 08/01/22 ondansetron 4 mg disintegrating 4 mg PO Q8H PRN 3 days #10 tabs 08/01/22 tablet Previous Rx's Medication Instructions Recorded ondansetron 4 mg disintegrating 4 mg PO Q8H PRN 3 days #10 tabs 08/01/22 tablet Allergies Allergy/AdvReac Type Severity Reaction Status Date / Time oxycodone AdvReac Unverified 05/26/22 16:05 General Stated Complaint: RespSymp GRACE: 4 Review of Systems Constitutional Constitutional: Reports fever(s) and Denies headache(s) ENT Ears, Nose, Mouth, and Throat: Denies headache(s) and Denies sore throat Cardiovascular Cardiovascular: Denies chest pain and Denies dyspnea Respiratory Respiratory: Reports cough and Denies dyspnea Gastrointestinal Gastrointestinal: Denies abdominal pain, Reports nausea and Reports vomiting Musculoskeletal Musculoskeletal: Reports myalgias Integumentary/Breasts Skin/Breast: Denies rash Neurologic Neurologic: Denies headache(s) PFSH All Active Problems COVID (Acute) Social History Smoking/Tobacco Use Status: Current every day Tobacco Type: cigarettes Tobacco: How many years used: 35 Smoking risk assessment performed?: Yes Alcohol Intake: never Drug use: Never Substance use type: does not use Do you feel safe at home: Yes Do you feel safe in your relationship?: Yes Exam Const General: cooperative, healthy appearing, comfortable and no acute distress Orientation: alert and awake [facility] Head: normal to inspection, normocephalic and atraumatic General nose exam: nasal discharge clear Mouth: moist mucous membranes Throat: posterior oropharynx normal Eyes General: appearance normal, both eyes and all related structures Conjunctivae: conjunctivae normal Neck Neck: normal visual inspection, full ROM, no meningeal signs, trachea midline and supple Resp Effort & Inspection: normal respiratory effort, able to speak in complete sentences and cough Quality of cough: dry (mild) Auscultation: clear to auscultation bilaterally Cardio Rate: regular rate Rhythm: regular rhythm GI Palpation: soft, not firm, no guarding and nontender Skin General skin exam: no rashes or lesions noted Neuro General: patient alert, patient awake, moves all extremities and no focal motor deficits Cognition: normal cognition Speech: speech normal Gait: normal gait Sensory Exam: no sensory deficits noted Psych Appearance: grossly normal Mental Status: mental status grossly normal Course Vital Signs Vital signs: Vital Signs Temperature 37.2 C 08/01/22 10:54 Pulse 97 H 08/01/22 10:54 Respiratory Rate 20 08/01/22 10:54 Blood Pressure 111/66 08/01/22 10:54 Pulse Oximetry 100 08/01/22 10:54 Temperature 37.2 C 08/01/22 10:54 Temperature Source Tympanic 08/01/22 10:54 Pulse 97 H 08/01/22 10:54 Respiratory Rate 20 08/01/22 10:54 Respiratory Effort Non-Labored 08/01/22 12:05 Respiratory Depth Normal 08/01/22 12:05 Blood Pressure 111/66 08/01/22 10:54 Blood Pressure Position Sitting 08/01/22 10:54 Pulse Oximetry 100 08/01/22 10:54 Oxygen Delivery Method Room Air 08/01/22 10:54 Oxygen Flow Rate 0 08/01/22 10:54 Pain Level 0 08/01/22 10:54
== END 2022-08-01 14:56 | disposition home or self-care (01) ==
PROVIDERS: Emergency Provider Physician Assistant
DX: U07.1 COVID-19 (principal); I10 Essential (primary) hypertension; F17.210 Nicotine dependence, cigarettes, uncomplicated
CPT/HCPCS: 99283; 99284